=== PATIENT | female | born 1990 | race Caucasian/White ===

== ENCOUNTER 2024-07-02 15:42 | Emergency (ER) | payer OTHER ==
[~2024-07-02] VITALS: Ht 162.6 cm; Wt 89.0 kg
[2024-07-02 15:59] VITALS: BP 101/60; PULSE 72; RESP 18; TEMP 98.7; O2SAT 96
== END 2024-07-02 17:48 | disposition home or self-care (01) ==
LOC: MED 15:42
DX: O13.2 Gestational [pregnancy-induced] hypertension without significant proteinuria, second trimester (principal); R03.0 Elevated blood-pressure reading, without diagnosis of hypertension; Z3A.21 21 weeks gestation of pregnancy
CPT/HCPCS: 93005; 99283